=== PATIENT | female | born 1985 | race Two or more races ===

== ENCOUNTER 2018-09-04 20:27 | Emergency (ER) | payer BC, MEDICAID ==
[~2018-09-04] VITALS: Ht 167.6 cm; Wt 90.7 kg
[~2018-09-04 20:27] MED LIST: PRENPAK46 OR
[2018-09-04 21:47] LABS: Urine Bacteria FEW /hpf (None Seen); Urine Blood Negative /uL (Negative); Urine Mucus FEW (None Seen); Urine Specific Gravity 1.026 (1.001-1.035); Urine WBC 17 /hpf (0 - 5)
[2018-09-04 21:48] LABS: Basophils # (auto) 0 uL; Basophils % (auto) 0.3 % (0.0-2.0); Eosinophils # (auto) 0.2 uL; Hematocrit 41.4 % (36.0-46.0); Hemoglobin 13.3 g/dL (12.2-16.2); Lymphocytes # (auto) 2.9 uL; Lymphocytes % (auto) 25.8 % (10.0-50.0); Mean Corpuscular Hemoglobin 25.9 pg (28.0-32.0); Mean Corpuscular Hgb Conc. 32.2 g/dL (32.0-36.0); Mean Corpuscular Volume 80.6 fL (80.0-100.0); Monocytes # (auto) 0.6 uL; Monocytes % (auto) 5.5 % (0.0-12.0); Neutrophils # (auto) 7.5 uL; Neutrophils % (auto) 66.4 % (37.0-80.0); Nucleated Red Blood Cells % 0.1 %; Platelet Count (auto) 417 10^3/uL (140-450); Red Blood Cells 5.14 10^6/uL (4.0-5.20); Red Cell Distribution Width 15.4 % (11.8-14.3); White Blood Cell 11.3 10^3/uL (4.4-10.8)
[2018-09-04 21:58] LABS: Albumin 3.9 g/dL (3.4-5.0); BUN/Creatinine Ratio 17.1; Potassium 3.9 mmol/L (3.5-5.1)
[2018-09-04 22:01] LABS: Bilirubin, Total 0.2 mg/dL (0.2-1.0); Total Protein 8.5 g/dL (6.4-8.2)
[2018-09-05 01:19] VITALS: BP 122/78
== END 2018-09-05 01:23 | disposition home or self-care (01) ==
LOC: ER 20:43
DX: M47.896 Other spondylosis, lumbar region (principal); M54.17 Radiculopathy, lumbosacral region; N39.0 Urinary tract infection, site not specified; R42 Dizziness and giddiness; R51 Headache; Z90.49 Acquired absence of other specified parts of digestive tract; Z88.1 Allergy status to other antibiotic agents
CPT/HCPCS: 36415; 71046; 80053; 81001; 84702; 85025

== ENCOUNTER 2019-03-11 21:24 | Emergency (ER) | payer MEDICAID ==
[~2019-03-11] VITALS: Ht 167.6 cm; Wt 86.2 kg
[2019-03-11 22:15] LABS: Basophils # (auto) 0.1 uL; Eosinophils # (auto) 0.2 uL; Hemoglobin 10.9 g/dL (12.2-16.2); Platelet Count (auto) 326 10^3/uL (140-450)
[2019-03-11 22:17] LABS: Basophils % (auto) 0.7 % (0.0-2.0); Eosinophils % (auto) 2.1 % (0.0-7.0); Hematocrit 33.8 % (36.0-46.0); Lymphocytes # (auto) 2.4 uL; Lymphocytes % (auto) 26.8 % (10.0-50.0); Mean Corpuscular Hemoglobin 26.1 pg (28.0-32.0); Mean Corpuscular Hgb Conc. 32.3 g/dL (32.0-36.0); Mean Corpuscular Volume 80.8 fL (80.0-100.0); Monocytes # (auto) 0.5 uL; Monocytes % (auto) 5.6 % (0.0-12.0); Neutrophils # (auto) 5.8 uL; Neutrophils % (auto) 64.8 % (37.0-80.0); Red Blood Cells 4.18 10^6/uL (4.0-5.20); Red Cell Distribution Width 15.5 % (11.8-14.3)
[2019-03-11 22:30] LABS: Calcium 8.5 mg/dL (8.5-10.1); Potassium 3.5 mmol/L (3.5-5.1)
[2019-03-11 22:33] LABS: Albumin 3.5 g/dL (3.4-5.0); BUN/Creatinine Ratio 18.2
[2019-03-11 22:36] LABS: Bilirubin, Total 0.1 mg/dL (0.2-1.0); Total Protein 7.4 g/dL (6.4-8.2)
[2019-03-11 22:37] LABS: Urine Bacteria FEW /hpf (None Seen); Urine Blood TRACE /uL (Negative); Urine Mucus FEW (None Seen); Urine Specific Gravity 1.024 (1.001-1.035); Urine WBC 9 /hpf (0 - 5)
[2019-03-12] MEDS ORDERED: LEVOFLOXACIN 500 MG TAB PO ONE (05:30)
[2019-03-12 07:29] VITALS: BP 111/51
== END 2019-03-12 07:50 | disposition home or self-care (01) ==
LOC: ER 21:26
DX: O46.91 Antepartum hemorrhage, unspecified, first trimester (principal); O21.8 Other vomiting complicating pregnancy; Z3A.01 Less than 8 weeks gestation of pregnancy
CPT/HCPCS: 36415; 76801; 80053; 81001; 84702; 85025

== ENCOUNTER 2019-07-05 20:26 | Emergency (ER) | payer MEDICAID ==
[~2019-07-05] VITALS: Ht 167.6 cm; Wt 84.4 kg
[2019-07-05 21:26] VITALS: BP 118/85
[2019-07-05 21:40] LABS: Urine Bacteria FEW /hpf (None Seen); Urine Blood TRACE /uL (Negative); Urine Mucus FEW (None Seen); Urine Specific Gravity 1.028 (1.001-1.035); Urine WBC 18 /hpf (0 - 5)
[2019-07-05 23:26] LABS: Basophils # (auto) 0.1 uL; Eosinophils # (auto) 0.1 uL; Monocytes # (auto) 0.6 uL; Neutrophils # (auto) 7.2 uL; White Blood Cell 10.6 10^3/uL (4.4-10.8)
[2019-07-05 23:28] LABS: Basophils % (auto) 0.7 % (0.0-2.0); Eosinophils % (auto) 1.2 % (0.0-7.0); Hematocrit 39.7 % (36.0-46.0); Lymphocytes # (auto) 2.6 uL; Lymphocytes % (auto) 24.5 % (10.0-50.0); Mean Corpuscular Hemoglobin 26.4 pg (28.0-32.0); Mean Corpuscular Hgb Conc. 32.7 g/dL (32.0-36.0); Mean Corpuscular Volume 80.9 fL (80.0-100.0); Monocytes % (auto) 5.7 % (0.0-12.0); Neutrophils % (auto) 67.9 % (37.0-80.0); Nucleated Red Blood Cells % 0.1 %; Platelet Count (auto) 396 10^3/uL (140-450); Red Blood Cells 4.91 10^6/uL (4.0-5.20); Red Cell Distribution Width 14.9 % (11.8-14.3)
[2019-07-05 23:44] LABS: Albumin 3.8 g/dL (3.4-5.0); Calcium 8.6 mg/dL (8.5-10.1)
[2019-07-05 23:48] LABS: BUN/Creatinine Ratio 22.1; Bilirubin, Total 0.3 mg/dL (0.2-1.0); Total Protein 8.6 g/dL (6.4-8.2)
== END 2019-07-06 00:01 | disposition left against medical advice (07) ==
LOC: ER 20:27
DX: R11.2 Nausea with vomiting, unspecified (principal); R10.9 Unspecified abdominal pain; N93.9 Abnormal uterine and vaginal bleeding, unspecified; Z53.21 Procedure and treatment not carried out due to patient leaving prior to being seen by health care provider
CPT/HCPCS: 36415; 80053; 81001; 81025; 84702; 85025

== ENCOUNTER 2019-08-04 22:26 | Emergency (ER) | payer MEDICAID ==
[2019-08-04 23:07] LABS: Basophils # (auto) 0.1 uL; Basophils % (auto) 0.7 % (0.0-2.0); Eosinophils # (auto) 0 uL; Eosinophils % (auto) 0.3 % (0.0-7.0); Hematocrit 37.9 % (36.0-46.0); Hemoglobin 12.4 g/dL (12.2-16.2); Mean Corpuscular Hemoglobin 26.9 pg (28.0-32.0); Mean Corpuscular Hgb Conc. 32.8 g/dL (32.0-36.0); Monocytes # (auto) 1.1 uL
[2019-08-04 23:12] LABS: Lymphocytes # (auto) 1.4 uL; Lymphocytes % (auto) 13.9 % (10.0-50.0); Mean Corpuscular Volume 81.8 fL (80.0-100.0); Monocytes % (auto) 11.2 % (0.0-12.0); Neutrophils # (auto) 7.4 uL; Neutrophils % (auto) 73.9 % (37.0-80.0); Platelet Count (auto) 323 10^3/uL (140-450); Red Blood Cells 4.63 10^6/uL (4.0-5.20); Red Cell Distribution Width 15.3 % (11.8-14.3)
[2019-08-04 23:19] LABS: Urine Pregnacy Test Negative (Negative)
[2019-08-04 23:22] LABS: Alcohol, Urine < 3.0 mg/dL (0-5); Amphetamine Screen, Urine NEGATIVE (NEGATIVE); Barbiturate Scree,Urine NEGATIVE (NEGATIVE); Benzodiazephine Screen, Urine NEGATIVE (NEGATIVE); Cannabinoid Screen, Urine NEGATIVE (NEGATIVE); Cocaine Screen, Urine NEGATIVE (NEGATIVE); Opiate Scree,Urine NEGATIVE (NEGATIVE); Phencyclidine Screen, Urine NEGATIVE (NEGATIVE)
[2019-08-04 23:22] LABS: Albumin 3.8 g/dL (3.4-5.0); Potassium 3.4 mmol/L (3.5-5.1)
[2019-08-04 23:24] LABS: Urine Bacteria NONE SEEN /hpf (None Seen); Urine Blood 1+ /uL (Negative); Urine Mucus FEW (None Seen); Urine WBC 18 /hpf (0 - 5)
[2019-08-04 23:26] LABS: BUN/Creatinine Ratio 9.4; Bilirubin, Total 0.2 mg/dL (0.2-1.0); Total Protein 8.4 g/dL (6.4-8.2)
[2019-08-05] MEDS ORDERED: IBUPROFEN 800 MG TAB PO ONE (01:45)
[2019-08-05] MEDS ORDERED: ONDANSETRON ODT 4 MG TAB PO ONE (02:45)
[2019-08-05 03:12] VITALS: BP 120/87
== END 2019-08-05 03:20 | disposition home or self-care (01) ==
LOC: ER 22:28
DX: N39.0 Urinary tract infection, site not specified (principal); F41.9 Anxiety disorder, unspecified; R42 Dizziness and giddiness; Z32.02 Encounter for pregnancy test, result negative; Z88.1 Allergy status to other antibiotic agents; Z90.49 Acquired absence of other specified parts of digestive tract
CPT/HCPCS: 36415; 76705; 80053; 80307; 81001; 81025; 85025; 99284; Q0162

== ENCOUNTER 2019-10-02 18:59 | Emergency (ER) | payer MEDICAID ==
[~2019-10-02] VITALS: Ht 167.6 cm; Wt 84.4 kg
[2019-10-02 23:34] VITALS: BP 119/69
== END 2019-10-03 00:11 | disposition home or self-care (01) ==
LOC: ER 19:00
DX: O20.0 Threatened abortion (principal); N30.00 Acute cystitis without hematuria; Z3A.01 Less than 8 weeks gestation of pregnancy
CPT/HCPCS: 36415; 76801; 76817; 81002; 84702

== ENCOUNTER → 2019-10-18 | Emergency (ER) | payer MEDICAID ==
[~2019-10-18] VITALS: Ht 167.6 cm; Wt 93.4 kg
[~2019-10-18] MED LIST changes: +ACETAMINOPHEN 325 MG TAB PO ONE
[2019-10-18 13:44] LABS: Basophils # (auto) 0 10 ^3/uL (0-0.2); Basophils % (auto) 0.6 % (0.0-2.0); Eosinophils # (auto) 0.2 10 ^3/uL (0-0.8); Eosinophils % (auto) 2.7 % (0.0-7.0); Hematocrit 35.1 % (36.0-46.0); Hemoglobin 11.8 g/dL (12.2-16.2); Lymphocytes # (auto) 1.6 10 ^3/uL (0.4-5.4); Lymphocytes % (auto) 22.2 % (10.0-50.0); Mean Corpuscular Hemoglobin 27.4 pg (28.0-32.0); Mean Corpuscular Hgb Conc. 33.5 g/dL (32.0-36.0); Mean Corpuscular Volume 81.7 fL (80.0-100.0); Monocytes # (auto) 0.4 10 ^3/uL (0-1.3); Monocytes % (auto) 5.9 % (0.0-12.0); Neutrophils # (auto) 5.1 10 ^3/uL (1.6-8.6); Neutrophils % (auto) 68.6 % (37.0-80.0); Platelet Count (auto) 305 10^3/uL (140-450); Red Blood Cells 4.29 10^6/uL (4.0-5.20); White Blood Cell 7.4 10^3/uL (4.4-10.8)
[2019-10-18 14:11] VITALS: BP 110/60
== END | disposition home or self-care (01) ==
LOC: ER 12:56
DX: O20.0 Threatened abortion (principal); Z90.49 Acquired absence of other specified parts of digestive tract; Z3A.00 Weeks of gestation of pregnancy not specified
CPT/HCPCS: 36415; 84702; 85025

== ENCOUNTER 2020-04-11 02:49 | Observation (INO) | payer MEDICAID ==
[~2020-04-11] VITALS: Ht 167.6 cm; Wt 102.1 kg
[~2020-04-11 02:49] MED LIST changes: -ACETAMINOPHEN 325 MG TAB PO ONE
[2020-04-11] MEDS ORDERED: LACTATED RINGER'S 1,000 ML IV ONE (03:49)
[2020-04-11] MEDS ORDERED: TERBUTALINE SULFATE 1 MG/ML 1ML VIAL SC SCH (04:00)
[2020-04-11 04:40] LABS: Urine Bacteria NONE SEEN /hpf (None Seen); Urine Blood Negative /uL (Negative); Urine Specific Gravity 1.008 (1.001-1.035); Urine WBC 1 /hpf (0 - 5)
[2020-04-11 05:00] LABS: Alcohol, Urine < 3.0 mg/dL (0-10); Amphetamine Screen, Urine NEGATIVE (NEGATIVE); Barbiturate Scree,Urine NEGATIVE (NEGATIVE); Benzodiazephine Screen, Urine NEGATIVE (NEGATIVE); Cannabinoid Screen, Urine NEGATIVE (NEGATIVE); Cocaine Screen, Urine NEGATIVE (NEGATIVE); Opiate Scree,Urine NEGATIVE (NEGATIVE); Phencyclidine Screen, Urine NEGATIVE (NEGATIVE)
== END 2020-04-11 06:45 | disposition home or self-care (01) ==
LOC: LDRP 02:49
PROVIDERS: ADMIT Obstetrics & Gynecology; ATTEND Obstetrics & Gynecology
DX: O62.9 Abnormality of forces of labor, unspecified (principal); Z20.828 Contact with and (suspected) exposure to other viral communicable diseases; O26.893 Other specified pregnancy related conditions, third trimester; R19.7 Diarrhea, unspecified; Z3A.31 31 weeks gestation of pregnancy; Z79.899 Other long term (current) drug therapy
CPT/HCPCS: 36415; 59025; 76805; 80307; 81001; 81002; 87086; 87426; 96360; 96361; G0378

== ENCOUNTER 2020-05-15 16:04 | Observation (INO) | payer MEDICAID | END 2020-05-15 17:34 | disposition home or self-care (01) | LOC: LDRP 16:04 | PROVIDERS: ADMIT Specialist; ATTEND Specialist | DX: O36.5990 Maternal care for other known or suspected poor fetal growth, unspecified trimester, not applicable or unspecified (principal); Z3A.36 36 weeks gestation of pregnancy | CPT/HCPCS: 59025; 76818; 81002; G0378 ==

== ENCOUNTER 2020-05-19 15:57 | Observation (INO) | payer MEDICAID ==
[2020-05-19] MEDS ORDERED: PREN-96 PO (16:44)
== END 2020-05-19 17:15 | disposition home or self-care (01) ==
LOC: LDRP 15:57
PROVIDERS: ADMIT Obstetrics & Gynecology; ATTEND Obstetrics & Gynecology
DX: O36.5930 Maternal care for other known or suspected poor fetal growth, third trimester, not applicable or unspecified (principal); Z3A.37 37 weeks gestation of pregnancy
CPT/HCPCS: 59025; 76818; 81002; G0378

== ENCOUNTER 2020-05-22 16:16 | Observation (INO) | payer MEDICAID | END 2020-05-22 19:14 | disposition home or self-care (01) | LOC: LDRP 16:16 | PROVIDERS: ADMIT Obstetrics & Gynecology; ATTEND Obstetrics & Gynecology | DX: O36.5930 Maternal care for other known or suspected poor fetal growth, third trimester, not applicable or unspecified (principal); O62.9 Abnormality of forces of labor, unspecified; O34.63 Maternal care for abnormality of vagina, third trimester; N89.8 Other specified noninflammatory disorders of vagina; Z91.040 Latex allergy status; Z3A.39 39 weeks gestation of pregnancy | CPT/HCPCS: 59025; 76818; 81002; G0378 ==

== ENCOUNTER 2020-05-26 14:16 | Observation (INO) | payer MEDICAID | END 2020-05-26 16:30 | disposition home or self-care (01) | LOC: UNDOADMOB 14:16 → LDRP 14:16 | PROVIDERS: ADMIT Obstetrics & Gynecology; ATTEND Obstetrics & Gynecology | DX: O36.5930 Maternal care for other known or suspected poor fetal growth, third trimester, not applicable or unspecified (principal); O34.63 Maternal care for abnormality of vagina, third trimester; N89.8 Other specified noninflammatory disorders of vagina; Z79.899 Other long term (current) drug therapy; Z3A.38 38 weeks gestation of pregnancy | CPT/HCPCS: 59025; 76818; 81002; 87086; G0378 ==

== ENCOUNTER 2020-05-30 14:39 | Observation (INO) | payer MEDICAID | END 2020-05-30 17:10 | disposition home or self-care (01) | LOC: UNDOADMOB 14:39 → LDRP 14:39 → UNDODISOB 17:10 | PROVIDERS: ADMIT Specialist; ATTEND Specialist | DX: O36.5930 Maternal care for other known or suspected poor fetal growth, third trimester, not applicable or unspecified (principal); O62.9 Abnormality of forces of labor, unspecified; O34.219 Maternal care for unspecified type scar from previous cesarean delivery; O09.523 Supervision of elderly multigravida, third trimester; Z3A.38 38 weeks gestation of pregnancy | CPT/HCPCS: 59025; 76818; 81002; G0378 ==

== ENCOUNTER 2020-06-03 04:30 | Inpatient (IN) | payer MEDICAID ==
[2020-06-03] VITALS (14 sets, daily range): BP systolic 85–135; BP diastolic 48–76
[~2020-06-03] VITALS: Ht 167.6 cm; Wt 108.9 kg
[2020-06-03] MEDS: LACTATED RINGER'S 1,000 ML IV SCH ×3 (04:45→20:45)
[2020-06-03] MEDS ORDERED: LACTATED RINGER'S 1,000 ML IV ONE (04:45)
[2020-06-03] MEDS ORDERED: CLINDAMYCIN 900MG IV 50 ML IV ONE (05:00)
[2020-06-03 06:15] LABS: Basophils # (auto) 0 10 ^3/uL (0-0.2); Basophils % (auto) 0.3 % (0.0-2.0); Eosinophils # (auto) 0.1 10 ^3/uL (0-0.8); Eosinophils % (auto) 0.8 % (0.0-7.0); Hematocrit 33.2 % (36.0-46.0); Hemoglobin 11.1 g/dL (12.2-16.2); Lymphocytes % (auto) 18.3 % (10.0-50.0); Mean Corpuscular Hemoglobin 28.3 pg (28.0-32.0); Mean Corpuscular Hgb Conc. 33.3 g/dL (32.0-36.0); Mean Corpuscular Volume 85.1 fL (80.0-100.0); Monocytes # (auto) 0.5 10 ^3/uL (0-1.3); Monocytes % (auto) 4.6 % (0.0-12.0); Neutrophils # (auto) 8.2 10 ^3/uL (1.6-8.6); Platelet Count (auto) 239 10^3/uL (140-450); Red Cell Distribution Width 14.5 % (11.8-14.3); White Blood Cell 10.7 10^3/uL (4.4-10.8)
[2020-06-03 06:26] LABS: Urine Bacteria FEW /hpf (None Seen); Urine Blood Negative /uL (Negative); Urine Mucus FEW (None Seen); Urine Specific Gravity 1.021 (1.001-1.035); Urine Sperm PRESENT /hpf (None Seen); Urine WBC 8 /hpf (0 - 5)
[2020-06-03 06:30] LABS: INR 0.94 (0.9-1.15); Partial Thromboplastin Time 25.4 sec (23.0-31.2)
[2020-06-03 06:36] LABS: Albumin 2.3 g/dL (3.4-5.0); Calcium 8.2 mg/dL (8.5-10.1); Potassium 3.3 mmol/L (3.5-5.1)
[2020-06-03 06:39] LABS: BUN/Creatinine Ratio 13.3; Bilirubin, Total 0.3 mg/dL (0.2-1.0); Total Protein 6.2 g/dL (6.4-8.2)
[2020-06-03] MEDS ORDERED: SUCCINYLCHOLINE CHLORIDE 20 MG/ML 10ML VIAL IV ONE (07:14)
[2020-06-03] MEDS ORDERED: fentaNYL CITRATE 100 MCG/2 ML VL ONE (07:15)
[2020-06-03] MEDS ORDERED: MORPHINE SULF(PF) 0.5MG/ML 10ML VIAL ONE (07:15)
[2020-06-03] MEDS ORDERED: ceFAZolin 1GM/50ML 50 ML IV ONE (07:27)
[2020-06-03] MEDS ORDERED: LACT. RINGERS/OXYTOCIN 20UNITS 1,000 ML IV ONE (07:45)
[2020-06-03] MEDS ORDERED: ONDANSETRON HCL 4 MG/2 ML VIAL IV PRN ×2 (07:45→09:00)
[2020-06-03] MEDS ORDERED: CLINDAMYCIN 900MG IV 0 ML IV ONE (07:55)
[2020-06-03] MEDS ORDERED: diphenhdrAMINE HCL 50 MG/1 ML VL IV PRN (09:00)
[2020-06-03] MEDS ORDERED: NALOXONE HCL 0.4 MG/ML VIAL IV PRN (09:00)
[2020-06-03] MEDS ORDERED: CLINDAMYCIN 600MG IV 50 ML IV ONE (09:03)
[2020-06-03] MEDS: MORPHINE SULFATE 4 MG/ML SYR/VIAL IV PRN ×2 (10:51→16:31)
[2020-06-03] MEDS: CLINDAMYCIN 900MG IV 50 ML IV SCH (16:32)
[2020-06-03] MEDS ORDERED: diphenhdrAMINE HCL 50 MG/1 ML VL IV ONE (17:00)
[2020-06-03] MEDS ORDERED: ACETAMINOPHEN IV 1000 MG/100ML (10MG/ML) IV ONE (18:00)
[2020-06-03 20:34] LABS: Basophils # (auto) 0 10 ^3/uL (0-0.2); Basophils % (auto) 0.2 % (0.0-2.0); Eosinophils # (auto) 0 10 ^3/uL (0-0.8); Eosinophils % (auto) 0.2 % (0.0-7.0); Hematocrit 35.3 % (36.0-46.0); Hemoglobin 11.3 g/dL (12.2-16.2); Lymphocytes # (auto) 1.4 10 ^3/uL (0.4-5.4); Lymphocytes % (auto) 11.9 % (10.0-50.0); Mean Corpuscular Hemoglobin 27.9 pg (28.0-32.0); Mean Corpuscular Hgb Conc. 32.1 g/dL (32.0-36.0); Mean Corpuscular Volume 86.9 fL (80.0-100.0); Monocytes # (auto) 0.3 10 ^3/uL (0-1.3); Monocytes % (auto) 2.9 % (0.0-12.0); Neutrophils % (auto) 84.8 % (37.0-80.0); Platelet Count (auto) 243 10^3/uL (140-450); Red Blood Cells 4.06 10^6/uL (4.0-5.20); Red Cell Distribution Width 14.6 % (11.8-14.3); White Blood Cell 11.8 10^3/uL (4.4-10.8)
[2020-06-03] MEDS: HYDROmorphone HCL 2 MG/ML VL IV PRN (22:12)
[2020-06-04] VITALS (9 sets, daily range): BP systolic 84–105; BP diastolic 49–60
[2020-06-04] MEDS: CLINDAMYCIN 900MG IV 50 ML IV SCH ×2 (00:54→08:18)
[2020-06-04] MEDS: HYDROmorphone HCL 2 MG/ML VL IV PRN (02:20)
[2020-06-04] MEDS: LACTATED RINGER'S 1,000 ML IV SCH (04:45)
[2020-06-04] MEDS: POTASSIUM CHL 20 Meq TABLET PO SCH ×2 (05:40→10:51)
[2020-06-04 06:06] LABS: RPR Non Reactive (Non Reactive)
[2020-06-04 07:22] LABS: Basophils # (auto) 0 10 ^3/uL (0-0.2); Basophils % (auto) 0.5 % (0.0-2.0); Eosinophils # (auto) 0.1 10 ^3/uL (0-0.8); Eosinophils % (auto) 0.8 % (0.0-7.0); Hematocrit 32.4 % (36.0-46.0); Hemoglobin 10.7 g/dL (12.2-16.2); Lymphocytes # (auto) 1.4 10 ^3/uL (0.4-5.4); Lymphocytes % (auto) 14.3 % (10.0-50.0); Mean Corpuscular Hemoglobin 28.4 pg (28.0-32.0); Mean Corpuscular Hgb Conc. 33.1 g/dL (32.0-36.0); Mean Corpuscular Volume 85.8 fL (80.0-100.0); Monocytes # (auto) 0.4 10 ^3/uL (0-1.3); Monocytes % (auto) 4.1 % (0.0-12.0); Neutrophils # (auto) 7.7 10 ^3/uL (1.6-8.6); Neutrophils % (auto) 80.3 % (37.0-80.0); Platelet Count (auto) 232 10^3/uL (140-450); Red Blood Cells 3.77 10^6/uL (4.0-5.20); Red Cell Distribution Width 14.5 % (11.8-14.3); White Blood Cell 9.5 10^3/uL (4.4-10.8)
[2020-06-04] MEDS ORDERED: HYDROcodone-ACET 5/325MG TAB PO PRN (08:00)
[2020-06-04] MEDS: IBUPROFEN 800 MG TAB PO PRN ×2 (08:19→17:18)
[2020-06-04] MEDS: DOCUSATE SOD 100 MG CAP PO SCH ×2 (10:51→21:53)
[2020-06-04] MEDS: HYDROcodone-ACET 5/325MG TAB PO PRN (12:59)
[2020-06-04] MEDS: SIMETHICONE 80 MG CHEWABLE TABLET PO SCH ×3 (12:59→21:49)
[2020-06-05] MEDS: HYDROcodone-ACET 5/325MG TAB PO PRN ×3 (01:07→17:01)
[2020-06-05] MEDS ORDERED: DERMOPLAST 60ML BOTTLE TOP PRN (01:15)
[2020-06-05 03:15] VITALS: BP 112/69
[2020-06-05] MEDS: SIMETHICONE 80 MG CHEWABLE TABLET PO SCH ×3 (05:39→18:00)
[2020-06-05 07:20] VITALS: BP 102/53
[2020-06-05] MEDS: DOCUSATE CALCIUM 240 MG CAP PO SCH ×2 (10:30→10:33)
[2020-06-05] MEDS: DOCUSATE SOD 100 MG CAP PO SCH ×2 (10:34→21:22)
[2020-06-05] MEDS: LACTATED RINGER'S 1,000 ML IV SCH (10:48)
[2020-06-05 11:00] VITALS: BP 102/54
[2020-06-05] MEDS ORDERED: SODIUM CHLORIDE 0.9% 500 ML IV ONE (11:00)
[2020-06-05] MEDS ORDERED: SODIUM CHLORIDE 0.9% 1,000 ML IV ONE (11:00)
[2020-06-05] MEDS: IBUPROFEN 800 MG TAB PO PRN ×2 (12:47→21:23)
[2020-06-05 15:20] VITALS: BP 103/68
[2020-06-05 19:00] VITALS: BP 124/69
[2020-06-05 23:00] VITALS: BP 104/51
[2020-06-06 03:00] VITALS: BP 105/61
[2020-06-06] MEDS: SIMETHICONE 80 MG CHEWABLE TABLET PO SCH ×2 (05:07→06:00)
[2020-06-06] MEDS: IBUPROFEN 800 MG TAB PO PRN (05:08)
[2020-06-06 07:25] VITALS: BP 100/50
[2020-06-06] MEDS: DOCUSATE SOD 100 MG CAP PO SCH (10:01)
[2020-06-06] MEDS: DOCUSATE CALCIUM 240 MG CAP PO SCH (10:01)
== END 2020-06-06 11:35 | disposition home or self-care (01) | DRG 540 ==
LOC: LDRP 04:30
PROVIDERS: ADMIT Obstetrics & Gynecology; ATTEND Obstetrics & Gynecology
PROC: 0UL70CZ Occlusion of Bilateral Fallopian Tubes with Extraluminal Device, Open Approach (ICD-10-PCS; 2020-06-03)
PROC: 10D00Z1 Extraction of Products of Conception, Low, Open Approach (ICD-10-PCS; principal; 2020-06-03 07:25)
DX: O34.211 Maternal care for low transverse scar from previous cesarean delivery (principal); O99.214 Obesity complicating childbirth; Z30.2 Encounter for sterilization; Z37.0 Single live birth; E66.9 Obesity, unspecified; Z3A.39 39 weeks gestation of pregnancy; Z20.828 Contact with and (suspected) exposure to other viral communicable diseases; Z88.1 Allergy status to other antibiotic agents
CPT/HCPCS: 36415; 59025; 80053; 81001; 85025; 85610; 85730; 86592; 86850; 86900; 86901; 87426; 94762; 96360; 96361; 96374; 96375; G0378; J0131; J0330; J0690; J2405; J2590; J3490